=== PATIENT | female | born 1980 | race African-American/Black ===

== ENCOUNTER 2017-12-13 08:55 | Inpatient (IN) | payer OTHER ==
--- NOTE | 2017-12-13 09:50 | HP ---
CIWA Score - CIWA Score Nausea/Vomitin Muscle Tremors: 2 Anxiety: 2 Agitation: 2 Paroxysmal Sweats: 1-Minimal Palms Moist Orientation: 0-Oriented Tacttile Disturbances: 1-Very Mild Itch/Numbness Auditory Disturbances: 1-Very Mild Visual Disturbances: 1-Very Mild Sensitivity Headache: 2-Mild CIWA-Ar Total Score: 14 Admission ROS [facility] - HPI Chief Complaint: I need help to stop drinking alcohol and marijuana,withdrawal symptom,never been in detox before, weight loss nicotine dependence insomnia injury to right middle finger longest period of sobriety 2 years Allergies/Adverse Reactions: Allergies Allergy/AdvReac Type Severity Reaction Status Date / Time No Known Allergies Allergy Verified 12/13/17 09:34 History of Present Illness: this 37 years old female with alcohol dependence,need help to stop drinking as mentioned in chief complaint - Ebola screening Have you traveled outside of the country in the last 21 days: No Have you had contact with anyone from an Ebola affected area: No Do you have a fever: No - Review of Systems Constitutional: Loss of Appetite, Malaise, Night Sweats, Changes in sleep, Weakness, Unintentional Wgt. Loss EENT: reports: Nose Congestion Respiratory: reports: No Symptoms reported Cardiac: reports: No Symptoms Reported GI: reports: Nausea, Poor Appetite, Abdominal cramping : reports: No Symptoms Reported Musculoskeletal: reports: Back Pain, Muscle Pain Integumentary: reports: Dryness Neuro: reports: Headache, Tremors Endocrine: reports: No Symptoms Reported Hematology: reports: No Symptoms Reported Psychiatric: reports: No Sypmtoms Reported, Judgement Intact, Mood/Affect Appropiate, Orientated x3 (inspmnia) Patient History - Patient Medical History Hx Anemia: No Hx Asthma: No Hx Chronic Obstructive Pulmonary Disease (COPD): No Hx Cancer: No Hx Cardiac Disorders: No Hx Congestive Heart Failure: No Hx Hypertension: No Hx Hypercholesterolemia: No Hx Pacemaker: No HX Cerebrovascular Accident: No Hx Seizures: No Hx Dementia: No Hx Diabetes: No Hx Gastrointestinal Disorders: No Hx Liver Disease: No Hx Genitourinary Disorders: No Hx Sexually Transmitted Disorders: No Hx Renal Disease (ESRD): No Hx Thyroid Disease: No Hx Hepatitis C: No Hx Depression: No Hx Suicide Attempt: No Hx Bipolar Disorder: No Hx Schizophrenia: No Other Medical History: no suicidal,no homicidal - Patient Surgical History Past Surgical History: No - PPD History Previous Implant?: Yes Documented Results: Negative w/o proof Implanted On Prior R Admission?: No PPD to be Administered?: Yes - Reproductive History Patient is a Female of Child Bearing Age (11 -55 yrs old): Yes Last Menstrual Period: 11/26/17 Patient : No - Smoking Cessation Smoking history: Current every day smoker Have you smoked in the past 12 months: Yes Aproximately how many cigarettes per day: 10 Hx Chewing Tobacco Use: No Initiated information on smoking cessation: Yes 'Breaking Loose' booklet given: 12/13/17 - Substance & Tx. History Hx Alcohol Use: Yes Hx Substance Use: Yes Substance Use Type: Alcohol, Marijuana Hx Substance Use Treatment: No - Substances Abused Alcohol Route: Oral Frequency: Daily Amount used: Vodka 1-2 pints Age of first use: 19 Date of Last Use: 12/12/17 Marijuana/Hashish Route: Smoking Frequency: Daily Amount used: 1 joint Age of first use: 16 Date of Last Use: 12/12/17 Family Disease History - Family Disease History Family History: Denies Admission Physical Exam [facility] - Vital Signs Vital Signs: Vital Signs Temperature 98.6 F 12/13/17 22:05 Pulse Rate 104 H 12/13/17 22:05 Respiratory Rate 18 12/14/17 03:30 Blood Pressure 132/78 12/13/17 22:05 O2 Sat by Pulse Oximetry (%) - Physical General Appearance: Yes: Moderate Distress, Tremorous, Irritable, Sweating, Anxious HEENTM: Yes: Normal ENT Inspection, VICENTA, Pharynx Normal Respiratory: Yes: Lungs Clear, Normal Breath Sounds, No Respiratory Distress Neck: Yes: Within Normal Limits, Supple, Trachea in good position Breast: Yes: Breast Exam Deferred Cardiology: Yes: Within Normal Limits, Regular Rhythm, Regular Rate, S1, S2 Abdominal: Yes: Within Normal Limits, Normal Bowel Sounds, Non Tender, Soft Genitourinary: Yes: Within Normal Limits Back: Yes: Muscle Spasm Musculoskeletal: Yes: Back pain, Muscle Pain Extremities: Yes: Tremors, Swelling (right middle finger base of distral phalanx movement in flexion no limitation) Neurological: Yes: ear mold laboratory technician II-XII NML intact, Fully Oriented, Alert, Motor Strength 5/5 Integumentary: Yes: Dry Lymphatic: Yes: Within Normal Limits - Diagnostic (1) Alcohol dependence with uncomplicated withdrawal Current Visit: Yes Status: Acute (2) Cannabis dependence Current Visit: Yes Status: Acute (3) Nicotine dependence Current Visit: Yes Status: Acute (4) Weight loss Current Visit: Yes Status: Acute (5) Insomnia Current Visit: Yes Status: Acute (6) Contusion of middle finger Current Visit: Yes Status: Acute Cleared for Admission [facility] - Detox or Rehab S Level of Care: Medically Managed Detox Regimen/Protocol: Librium
[2017-12-13] MEDS ORDERED: MAG HYDROX/AL HYDROX/SIMETH 30 ML UNIT-DOSE CUP PO PRN (10:00)
[2017-12-13] MEDS ORDERED: IBUPROFEN 400 MG TABLET (FP) PO PRN (10:00)
[2017-12-13] MEDS ORDERED: MAGNESIUM CITRATE 300 ML BOTTLE PO PRN (10:00)
[2017-12-13] MEDS ORDERED: ACETAMINOPHEN 325 MG TABLET (FP) PO PRN (10:00)
[2017-12-13] MEDS ORDERED: MENTHOL/PHENOL 1 EACH UD MM PRN (10:00)
[2017-12-13] MEDS ORDERED: P-EPHED 60MG/TRIPROLIDI 2.5MG TABLET PO PRN (10:00)
[2017-12-13] MEDS ORDERED: MAGNESIUM HYDROX 2400MG/30ML ORAL SUSPENSION 30 ML CUP PO PRN (10:00)
[2017-12-13] MEDS ORDERED: LOPERAMIDE HCL 2 MG CAPSULE PO PRN (10:00)
[2017-12-13] MEDS ORDERED: guaiFENesin/D-METHORPHAN HB 10 ML UNIT-DOSE CUPS PO PRN (10:00)
[2017-12-13 10:11] VITALS: BMI 23.2
[2017-12-13] MEDS: PRENATAL VITAMINS W/ FOLIC ACID TABLET (FP) PO SCH (12:46)
[2017-12-13] MEDS: chlordiazePOXIDE HCL 25 MG CAPSULE PO PRN (12:46)
[2017-12-13] MEDS: chlordiazePOXIDE HCL 25 MG CAPSULE PO SCH ×2 (18:25→22:29)
[2017-12-13 19:25] LABS: URINE APPEARANCE CLOUDY; URINE COLOR AMBER; URINE GLUCOSE (UA) NEGATIVE (NEGATIVE); URINE KETONE NEGATIVE (NEGATIVE); URINE LEUK ESTERASE 2+ (NEGATIVE); URINE NITRITE NEGATIVE (NEGATIVE); URINE PROTEIN 2+ (NEGATIVE); URINE UROBILINOGEN 4.0 E.U/dl mg/dL (0.2-1.0)
[2017-12-13 19:46] LABS: EPI CELLS MANY /HPF (FEW); URINE MUCUS MANY
[2017-12-13] MEDS: THIAMINE HCL 100 MG TABLET (FP) PO SCH (22:29)
[2017-12-14] MEDS: chlordiazePOXIDE HCL 25 MG CAPSULE PO PRN ×2 (02:02→14:56)
[2017-12-14] MEDS: hydrOXYzine PAMOATE 25 MG CAPSULE (FP) PO PRN ×2 (02:02→14:56)
[2017-12-14] MEDS: chlordiazePOXIDE HCL 25 MG CAPSULE PO SCH ×4 (05:49→22:06)
[2017-12-14 10:19] LABS: HEMATOCRIT 38.2 % (32.4-45.2); HEMOGLOBIN 12.6 GM/dL (10.7-15.3); MCH 31.3 pg (25.7-33.7); MCHC 32.9 g/dl (32.0-36.0); MEAN PLT VOLUME 8.5 fl (7.5-11.1); PLATELET COUNT 234 K/MM3 (134-434); RBC 4.02 M/mm3 (3.60-5.2); RDW 13.6 % (11.6-15.6); WHITE BLOOD COUNT 5.5 K/mm3 (4.0-10.0)
[2017-12-14] MEDS: PRENATAL VITAMINS W/ FOLIC ACID TABLET (FP) PO SCH (10:36)
[2017-12-14 10:43] LABS: ALBUMIN 4.3 g/dl (3.4-5.0); ALK PHOS 95 U/L (45-117); ANION GAP 12 MMOL/L (8-16); BILIRUBIN,TOTAL 1.7 mg/dL (0.2-1); BLOOD UREA NITROGEN 9 mg/dL (7-18); CALCIUM 9.3 mg/dL (8.5-10.1); CHLORIDE 101 mmol/L (98-107); CO2 29 mmol/L (21-32); CREATININE 0.7 mg/dL (0.55-1.3); GLUCOSE,RANDOM 104 mg/dL (74-106); POTASSIUM 3.1 mmol/L (3.5-5.1); SGOT/AST 22 U/L (15-37); SGPT/ALT 21 U/L (13-61); SODIUM 142 mmol/L (136-145); TOT PROT 8.2 g/dl (6.4-8.2)
--- NOTE | 2017-12-14 14:47 | EKG ---
Test Reason : Blood Pressure : / mmHG Vent. Rate : 093 BPM Atrial Rate : 093 BPM P-R Int : 154 ms QRS Dur : 096 ms QT Int : 402 ms P-R-T Axes : 066 066 042 degrees QTc Int : 499 ms NORMAL SINUS RHYTHM PROLONGED QT ABNORMAL ECG NO PREVIOUS ECGS AVAILABLE Confirmed by MD Abraham, Carlos ([id number]) on 12/14/2017 2:47:22 PM Referred By: Confirmed By:Carlos Rosario MD
--- NOTE | 2017-12-14 15:19 | PN ---
[facility] CIWA - CIWA Score Nausea/Vomitin-No Nausea/No Vomiting Muscle Tremors: 1-None Visible, but [place] Anxiety: 1-Mildly Anxious Paroxysmal Sweats: No Perspiration Orientation: 0-Oriented Tacttile Disturbances: 0-None Auditory Disturbances: 0-None Visual Disturbances: 0-None Headache: 0-None Present [facility] Progress Note (SOAP) Subjective: States feeling better. I still feel very anxious and shaky though. Objective: A&O x 3. Mild tremors felt in hands. Vital Signs 12/14/17 12/14/17 12/14/17 03:30 09:25 13:57 Temperature 96.8 F L 98.1 F Pulse Rate 98 H 100 H Respiratory 18 18 16 Rate Blood Pressure 124/85 153/80 Laboratory Last Values WBC 5.5 K/mm3 (4.0-10.0) 12/14/17 05:40 RBC 4.02 M/mm3 (3.60-5.2) 12/14/17 05:40 Hgb 12.6 GM/dL (10.7-15.3) 12/14/17 05:40 Hct 38.2 % (32.4-45.2) 12/14/17 05:40 MCV 95.0 fl (80-96) 12/14/17 05:40 MCH 31.3 pg (25.7-33.7) 12/14/17 05:40 MCHC 32.9 g/dl (32.0-36.0) 12/14/17 05:40 RDW 13.6 % (11.6-15.6) 12/14/17 05:40 Plt Count 234 K/MM3 (134-434) 12/14/17 05:40 MPV 8.5 fl (7.5-11.1) 12/14/17 05:40 Sodium 142 mmol/L (136-145) 12/14/17 05:40 Potassium 4.4 mmol/L (3.5-5.1) 12/16/17 07:00 Chloride 101 mmol/L (98-107) 12/14/17 05:40 Carbon Dioxide 29 mmol/L (21-32) 12/14/17 05:40 Anion Gap 12 MMOL/L (8-16) 12/14/17 05:40 BUN 9 mg/dL (7-18) 12/14/17 05:40 Creatinine 0.7 mg/dL (0.55-1.3) 12/14/17 05:40 Creat Clearance w eGFR > 60 (>60) 12/14/17 05:40 Random Glucose 104 mg/dL (74-106) 12/14/17 05:40 Calcium 9.3 mg/dL (8.5-10.1) 12/14/17 05:40 Total Bilirubin 1.7 mg/dL (0.2-1) H 12/14/17 05:40 AST 22 U/L (15-37) 12/14/17 05:40 ALT 21 U/L (13-61) 12/14/17 05:40 Alkaline Phosphatase 95 U/L (45-117) 12/14/17 05:40 Total Protein 8.2 g/dl (6.4-8.2) 12/14/17 05:40 Albumin 4.3 g/dl (3.4-5.0) 12/14/17 05:40 Urine Color Yellow 12/16/17 19:30 Urine Appearance Cloudy 12/16/17 19:30 Urine pH 6.0 (5.0-8.0) 12/16/17 19:30 Ur Specific [place] 1.020 (1.010-1.035) 12/16/17 19:30 Urine Protein 1+ (NEGATIVE) H 12/16/17 19:30 Urine Glucose (UA) Negative (NEGATIVE) 12/16/17 19:30 Urine Ketones Negative (NEGATIVE) 12/16/17 19:30 Urine Blood 3+ (NEGATIVE) H 12/16/17 19:30 Urine Nitrite Negative (NEGATIVE) 12/16/17 19:30 Urine Bilirubin Negative (<2.0 mg/dL) 12/16/17 19:30 Urine Urobilinogen Negative mg/dL (0.2-1.0) 12/16/17 19:30 Ur Leukocyte Esterase 2+ (NEGATIVE) H 12/16/17 19:30 Urine WBC (Auto) 13 /hpf (3-5) 12/16/17 19:30 Urine RBC (Auto) 2238 /hpf (0-3) 12/16/17 19:30 Ur Epithelial Cells Few /HPF (FEW) 12/16/17 19:30 Urine Mucus Rare 12/16/17 19:30 RPR Titer Nonreactive (NONREACTIVE) 12/14/17 05:40 HIV 1&2 Antibody Screen Negative 12/13/17 11:26 HIV P24 Antigen Negative 12/13/17 11:26 Labs reviewed. Assessment: Withdrawal symptoms Plan: Continue detox.
[2017-12-14] MEDS: THIAMINE HCL 100 MG TABLET (FP) PO SCH (22:06)
[2017-12-15] MEDS: chlordiazePOXIDE HCL 25 MG CAPSULE PO SCH ×2 (05:55→10:24)
[2017-12-15] MEDS: PRENATAL VITAMINS W/ FOLIC ACID TABLET (FP) PO SCH (10:24)
--- NOTE | 2017-12-15 11:49 | PN ---
[facility] CIWA - CIWA Score Nausea/Vomitin-No Nausea/No Vomiting Muscle Tremors: 3 Anxiety: 2 Agitation: 2 Paroxysmal Sweats: 1-Minimal Palms Moist Orientation: 0-Oriented Tacttile Disturbances: 1-Very Mild Itch/Numbness Auditory Disturbances: 1-Very Mild Visual Disturbances: 0-None Headache: 1-Very Mild CIWA-Ar Total Score: 11 S Progress Note (SOAP) Subjective: tremor sweat restlessness trouble sleep at night trouble with male staff security and counselor and racebook writer discuss aggressive behabior toward house keeping case discuss with house keeping male staff that skip patient's room and move on to the next room the racebook writer recommend female house keeping to clean patient's room patient remove all her clothe on her bed emotionarl assurance that patient has the right nake in room but aggressive behavior violent behavior with potential harm others' behavior such as push the door in front of male staff's face is not acceptable psychiatrist referral for possible emotional trauma by history Objective: 12/15/17 11:48 Vital Signs Temperature 99.7 F H 12/15/17 09:45 Pulse Rate 96 H 12/15/17 09:45 Respiratory Rate 18 12/15/17 09:45 Blood Pressure 127/60 12/15/17 09:45 O2 Sat by Pulse Oximetry (%) Laboratory Last Values WBC 5.5 K/mm3 (4.0-10.0) 12/14/17 05:40 RBC 4.02 M/mm3 (3.60-5.2) 12/14/17 05:40 Hgb 12.6 GM/dL (10.7-15.3) 12/14/17 05:40 Hct 38.2 % (32.4-45.2) 12/14/17 05:40 MCV 95.0 fl (80-96) 12/14/17 05:40 MCH 31.3 pg (25.7-33.7) 12/14/17 05:40 MCHC 32.9 g/dl (32.0-36.0) 12/14/17 05:40 RDW 13.6 % (11.6-15.6) 12/14/17 05:40 Plt Count 234 K/MM3 (134-434) 12/14/17 05:40 MPV 8.5 fl (7.5-11.1) 12/14/17 05:40 Sodium 142 mmol/L (136-145) 12/14/17 05:40 Potassium 3.1 mmol/L (3.5-5.1) L 12/14/17 05:40 Chloride 101 mmol/L (98-107) 12/14/17 05:40 Carbon Dioxide 29 mmol/L (21-32) 12/14/17 05:40 Anion Gap 12 MMOL/L (8-16) 12/14/17 05:40 BUN 9 mg/dL (7-18) 12/14/17 05:40 Creatinine 0.7 mg/dL (0.55-1.3) 12/14/17 05:40 Creat Clearance w eGFR > 60 (>60) 12/14/17 05:40 Random Glucose 104 mg/dL (74-106) 12/14/17 05:40 Calcium 9.3 mg/dL (8.5-10.1) 12/14/17 05:40 Total Bilirubin 1.7 mg/dL (0.2-1) H 12/14/17 05:40 AST 22 U/L (15-37) 12/14/17 05:40 ALT 21 U/L (13-61) 12/14/17 05:40 Alkaline Phosphatase 95 U/L (45-117) 12/14/17 05:40 Total Protein 8.2 g/dl (6.4-8.2) 12/14/17 05:40 Albumin 4.3 g/dl (3.4-5.0) 12/14/17 05:40 Urine Color [place] 12/13/17 16: Urine Appearance Cloudy 12/13/17 16:27 Urine pH 5.0 (5.0-8.0) 12/13/17 16:27 Ur Specific [place] 1.032 (1.010-1.035) 12/13/17 16: Urine Protein 2+ (NEGATIVE) H 12/13/17 16:27 Urine Glucose (UA) Negative (NEGATIVE) 12/13/17 16:27 Urine Ketones Negative (NEGATIVE) 12/13/17 16: Urine Blood Negative (NEGATIVE) 12/13/17 16: Urine Nitrite Negative (NEGATIVE) 12/13/17 16:27 Urine Bilirubin 2.0 (<2.0 mg/dL) 12/13/17 16:27 Urine Urobilinogen 4.0 e.u/dl mg/dL (0.2-1.0) H 12/13/17 16:27 Ur Leukocyte Esterase 2+ (NEGATIVE) H 12/13/17 16:27 Urine WBC (Auto) 82 /hpf (3-5) 12/13/17 16:27 Urine RBC (Auto) 19 /hpf (0-3) 12/13/17 16:27 Ur Epithelial Cells Many /HPF (FEW) 12/13/17 16:27 Urine Mucus Many 12/13/17 16:27 RPR Titer Nonreactive (NONREACTIVE) 12/14/17 05:40 HIV 1&2 Antibody Screen Negative 12/13/17 11:26 HIV P24 Antigen Negative 12/13/17 11:26 lab noted K+ low Assessment: 12/15/17 11:50 withdrawal sx rule out depression K+ supplement repeat K+ Plan: continue detox potassium supplement repeat K+
[2017-12-15] MEDS: POTASSIUM CHLORIDE ORAL LIQUID 20 MEQ/15 ML PO SCH ×2 (13:36→22:30)
[2017-12-15] MEDS: chlordiazePOXIDE 5 MG CAPSULE PO SCH ×2 (17:22→22:28)
[2017-12-15] MEDS: THIAMINE HCL 100 MG TABLET (FP) PO SCH (22:29)
[2017-12-15] MEDS: MELATONIN 5 MG TABLETS PO PRN (22:29)
[2017-12-16] MEDS: chlordiazePOXIDE 5 MG CAPSULE PO SCH ×2 (05:46→10:10)
--- NOTE | 2017-12-16 07:43 | CONSULT ---
[facility] Psychiatric Consult - Data Date of interview: 12/16/17 Admission source: [facility] Identifying data: This is a 37 years old female, single mother of two, unemploued, homeless, on PA support, with psychiatric hospitalization history, history of Bipolar disorder, is here due to Alcohol depemdence, reports Alcohol withdrawal symptomsmand seeking detox. Substance Abuse History: Smoking history: Current every day smoker. Have you smoked in the past 12 months: Yes. Aproximately how many cigarettes per day: 10. Hx Chewing Tobacco Use: No. Initiated information on smoking cessation: Yes. 'Breaking Loose' booklet given: 12/13/17. - Substance & Tx. History. Hx Alcohol Use: Yes. Hx Substance Use: Yes. Substance Use Type: Alcohol, Marijuana. Hx Substance Use Treatment: No. - Substances Abused. Alcohol. Route: Oral. Frequency: Daily. Amount used: Vodka 1-2 pints. Age of first use : 19. Date of Last Use: 12/12/17. Marijuana/Hashish. Route: Smoking. Frequency: Daily. Amount used: 1 joint. Age of first use: 16. Date of Last Use: 12/12/17 Medical History: Weight loss history Psychiatric History: Patient reports history of anxiety and depression, reports no medications taking this time, reports unclear psychiatric admission on about more then 5 years ago, denies any psychiatric pharmacological intervention at thistime. Denies suicidal, homicidal history. Physical/Sexual Abuse/Trauma History: Denies, unclear Additional Comment: Observation. Detox Unit Carte Protocol Mental Status Exam - Mental Status Exam Alert and Oriented to: Person Cognitive Function: Fair Patient Appearance: Unkempt Mood: Sad Affect: Flat Patient Behavior: Sedated Speech Pattern: Delayed Voice Loudness: Mildly Soft/Quiet Thought Process: Circumstantial Thought Disorder: Being Controlled Hallucinations: Denies Suicidal Ideation: Denies Homicidal Ideation: Denies Insight/Judgement: Fair Sleep: Difficulty falling asleep Appetite: Weight loss Muscle strength/Tone: Mild Hypotonicity Gait/Station: Shuffling Additional Comments: Observation. Detox Unit Carte Protocol Psychiatric Findings - Problem List ([place] 1, 2,3) (1) Alcohol dependence with uncomplicated withdrawal Current Visit: Yes Status: Acute (2) Cannabis dependence Current Visit: Yes Status: Acute (3) Nicotine dependence Current Visit: Yes Status: Acute (4) Weight loss Current Visit: Yes Status: Acute - Initial Treatment Plan Initial Treatment Plan: Observation. Detox Unit Carte Protocol
[2017-12-16] MEDS: PRENATAL VITAMINS W/ FOLIC ACID TABLET (FP) PO SCH (10:10)
[2017-12-16] MEDS: POTASSIUM CHLORIDE ORAL LIQUID 20 MEQ/15 ML PO SCH (10:11)
--- NOTE | 2017-12-16 10:44 | PN ---
[facility] Progress Note (SOAP) Subjective: feeling better no tremor less sweat no gi distress Objective: 12/16/17 10:47 Vital Signs Temperature 98.1 F 12/16/17 10:19 Pulse Rate 94 H 12/16/17 10:19 Respiratory Rate 18 12/16/17 10:19 Blood Pressure 112/74 12/16/17 10:19 O2 Sat by Pulse Oximetry (%) Laboratory Last Values WBC 5.5 K/mm3 (4.0-10.0) 12/14/17 05:40 RBC 4.02 M/mm3 (3.60-5.2) 12/14/17 05:40 Hgb 12.6 GM/dL (10.7-15.3) 12/14/17 05:40 Hct 38.2 % (32.4-45.2) 12/14/17 05:40 MCV 95.0 fl (80-96) 12/14/17 05:40 MCH 31.3 pg (25.7-33.7) 12/14/17 05:40 MCHC 32.9 g/dl (32.0-36.0) 12/14/17 05:40 RDW 13.6 % (11.6-15.6) 12/14/17 05:40 Plt Count 234 K/MM3 (134-434) 12/14/17 05:40 MPV 8.5 fl (7.5-11.1) 12/14/17 05:40 Sodium 142 mmol/L (136-145) 12/14/17 05:40 Potassium 4.4 mmol/L (3.5-5.1) 12/16/17 07:00 Chloride 101 mmol/L (98-107) 12/14/17 05:40 Carbon Dioxide 29 mmol/L (21-32) 12/14/17 05:40 Anion Gap 12 MMOL/L (8-16) 12/14/17 05:40 BUN 9 mg/dL (7-18) 12/14/17 05:40 Creatinine 0.7 mg/dL (0.55-1.3) 12/14/17 05:40 Creat Clearance w eGFR > 60 (>60) 12/14/17 05:40 Random Glucose 104 mg/dL (74-106) 12/14/17 05:40 Calcium 9.3 mg/dL (8.5-10.1) 12/14/17 05:40 Total Bilirubin 1.7 mg/dL (0.2-1) H 12/14/17 05:40 AST 22 U/L (15-37) 12/14/17 05:40 ALT 21 U/L (13-61) 12/14/17 05:40 Alkaline Phosphatase 95 U/L (45-117) 12/14/17 05:40 Total Protein 8.2 g/dl (6.4-8.2) 12/14/17 05:40 Albumin 4.3 g/dl (3.4-5.0) 12/14/17 05:40 Urine Color [place] 12/13/17 16: Urine Appearance Cloudy 12/13/17 16: Urine pH 5.0 (5.0-8.0) 12/13/17 16:27 Ur Specific [place] 1.032 (1.010-1.035) 12/13/17 16:27 Urine Protein 2+ (NEGATIVE) H 12/13/17 16:27 Urine Glucose (UA) Negative (NEGATIVE) 12/13/17 16:27 Urine Ketones Negative (NEGATIVE) 12/13/17 16: Urine Blood Negative (NEGATIVE) 12/13/17 16:27 Urine Nitrite Negative (NEGATIVE) 12/13/17 16:27 Urine Bilirubin 2.0 (<2.0 mg/dL) 12/13/17 16:27 Urine Urobilinogen 4.0 e.u/dl mg/dL (0.2-1.0) H 12/13/17 16:27 Ur Leukocyte Esterase 2+ (NEGATIVE) H 12/13/17 16:27 Urine WBC (Auto) 82 /hpf (3-5) 12/13/17 16:27 Urine RBC (Auto) 19 /hpf (0-3) 12/13/17 16:27 Ur Epithelial Cells Many /HPF (FEW) 12/13/17 16:27 Urine Mucus Many 12/13/17 16:27 RPR Titer Nonreactive (NONREACTIVE) 12/14/17 05:40 HIV 1&2 Antibody Screen Negative 12/13/17 11:26 HIV P24 Antigen Negative 12/13/17 11:26 lab noted repeat ua Assessment: 12/16/17 10:49 mild withdrawal sx Plan: medically supervised detox
[2017-12-16] MEDS: chlordiazePOXIDE HCL 10 MG CAPSULE PO SCH ×2 (17:55→22:30)
[2017-12-16 20:35] LABS: URINE APPEARANCE CLOUDY; URINE BILIRUBIN NEGATIVE (<2.0 mg/dL); URINE COLOR YELLOW; URINE GLUCOSE (UA) NEGATIVE (NEGATIVE); URINE KETONE NEGATIVE (NEGATIVE); URINE LEUK ESTERASE 2+ (NEGATIVE); URINE NITRITE NEGATIVE (NEGATIVE); URINE PROTEIN 1+ (NEGATIVE); URINE UROBILINOGEN NEGATIVE mg/dL (0.2-1.0)
[2017-12-16 20:48] LABS: EPI CELLS FEW /HPF (FEW); URINE MUCUS RARE
[2017-12-16] MEDS: THIAMINE HCL 100 MG TABLET (FP) PO SCH (22:30)
[2017-12-16] MEDS: MELATONIN 5 MG TABLETS PO PRN (22:31)
[2017-12-17] MEDS: chlordiazePOXIDE HCL 10 MG CAPSULE PO SCH (05:55)
--- NOTE | 2017-12-17 09:03 | DS ---
[facility] Detox Discharge Summary Admission Date: 12/13/17 Discharge Date: 12/17/17 - History Present History: Alcohol Dependence Additional Comments: 37 years old female admitted on 12/13/17 for alcohol withdrawal sx completed alcohol detox regimen tolerated well denies alcohol withdrawal sx alert oriented x 3 no acute distress aftercare new direction - Physical Exam Results Vital Signs: Vital Signs Temperature 97.5 F L 12/17/17 07:25 Pulse Rate 90 12/17/17 07:25 Respiratory Rate 18 12/17/17 07:25 Blood Pressure 125/77 12/17/17 07:25 O2 Sat by Pulse Oximetry (%) Pertinent Admission Physical Exam Findings: alcohol withdrawal sx Vital Signs Temperature 98.1 F 12/17/17 09:44 Pulse Rate 95 H 12/17/17 09:44 Respiratory Rate 16 12/17/17 09:44 Blood Pressure 124/85 12/17/17 09:44 O2 Sat by Pulse Oximetry (%) Laboratory Last Values WBC 5.5 K/mm3 (4.0-10.0) 12/14/17 05:40 RBC 4.02 M/mm3 (3.60-5.2) 12/14/17 05:40 Hgb 12.6 GM/dL (10.7-15.3) 12/14/17 05:40 Hct 38.2 % (32.4-45.2) 12/14/17 05:40 MCV 95.0 fl (80-96) 12/14/17 05:40 MCH 31.3 pg (25.7-33.7) 12/14/17 05:40 MCHC 32.9 g/dl (32.0-36.0) 12/14/17 05:40 RDW 13.6 % (11.6-15.6) 12/14/17 05:40 Plt Count 234 K/MM3 (134-434) 12/14/17 05:40 MPV 8.5 fl (7.5-11.1) 12/14/17 05:40 Sodium 142 mmol/L (136-145) 12/14/17 05:40 Potassium 4.4 mmol/L (3.5-5.1) 12/16/17 07:00 Chloride 101 mmol/L (98-107) 12/14/17 05:40 Carbon Dioxide 29 mmol/L (21-32) 12/14/17 05:40 Anion Gap 12 MMOL/L (8-16) 12/14/17 05:40 BUN 9 mg/dL (7-18) 12/14/17 05:40 Creatinine 0.7 mg/dL (0.55-1.3) 12/14/17 05:40 Creat Clearance w eGFR > 60 (>60) 12/14/17 05:40 Random Glucose 104 mg/dL (74-106) 12/14/17 05:40 Calcium 9.3 mg/dL (8.5-10.1) 12/14/17 05:40 Total Bilirubin 1.7 mg/dL (0.2-1) H 12/14/17 05:40 AST 22 U/L (15-37) 12/14/17 05:40 ALT 21 U/L (13-61) 12/14/17 05:40 Alkaline Phosphatase 95 U/L (45-117) 12/14/17 05:40 Total Protein 8.2 g/dl (6.4-8.2) 12/14/17 05:40 Albumin 4.3 g/dl (3.4-5.0) 12/14/17 05:40 Urine Color Yellow 12/16/17 19:30 Urine Appearance Cloudy 12/16/17 19:30 Urine pH 6.0 (5.0-8.0) 12/16/17 19:30 Ur Specific [place] 1.020 (1.010-1.035) 12/16/17 19:30 Urine Protein 1+ (NEGATIVE) H 12/16/17 19:30 Urine Glucose (UA) Negative (NEGATIVE) 12/16/17 19:30 Urine Ketones Negative (NEGATIVE) 12/16/17 19:30 Urine Blood 3+ (NEGATIVE) H 12/16/17 19:30 Urine Nitrite Negative (NEGATIVE) 12/16/17 19:30 Urine Bilirubin Negative (<2.0 mg/dL) 12/16/17 19: Urine Urobilinogen Negative mg/dL (0.2-1.0) 12/16/17 19:30 Ur Leukocyte Esterase 2+ (NEGATIVE) H 12/16/17 19:30 Urine WBC (Auto) 13 /hpf (3-5) 12/16/17 19:30 Urine RBC (Auto) 2238 /hpf (0-3) 12/16/17 19:30 Ur Epithelial Cells Few /HPF (FEW) 12/16/17 19:30 Urine Mucus Rare 12/16/17 19:30 RPR Titer Nonreactive (NONREACTIVE) 12/14/17 05:40 HIV 1&2 Antibody Screen Negative 12/13/17 11:26 HIV P24 Antigen Negative 12/13/17 11:26 lab noted asymptomatic encourage hygiene oral fluid - Treatment Hospital Course: Detox Protocol Followed, Detoxed Safely, Responded well, Discharged Condition Good, Rehab Referral Accepted Patient has Accepted a Rehab Referral to: new direction - Medication Discharge Medications: Ambulatory Orders NK [No Known Home Medication] 12/13/17 - Diagnosis (1) Alcohol dependence with uncomplicated withdrawal Current Visit: Yes Status: Acute (2) Nicotine dependence Current Visit: Yes Status: Acute Qualifiers: Nicotine product type: cigarettes Substance use status: in withdrawal Qualified Code(s): F17.213 - Nicotine dependence, cigarettes, with withdrawal (3) Weight loss Current Visit: Yes Status: Acute - AMA Did Patient Leave Against Medical Advice: No
[2017-12-17 09:44] VITALS: BP 124/85; PULSE 95; TEMP 98.1
== END 2017-12-17 09:55 | disposition home or self-care (01) | DRG 775 ==
LOC: YASAS 08:55 → Y6N 11:10
PROC: HZ2ZZZZ Detoxification Services for Substance Abuse Treatment (ICD-10-PCS; principal; 2017-12-13)
DX: F10.230 Alcohol dependence with withdrawal, uncomplicated (principal); F12.20 Cannabis dependence, uncomplicated; F17.213 Nicotine dependence, cigarettes, with withdrawal; E87.6 Hypokalemia; G47.00 Insomnia, unspecified; M62.830 Muscle spasm of back; S60.031A Contusion of right middle finger without damage to nail, initial encounter; R63.4 Abnormal weight loss; Z68.23 Body mass index [BMI] 23.0-23.9, adult; X58.XXXA Exposure to other specified factors, initial encounter; Y93.89 Activity, other specified; Y92.9 Unspecified place or not applicable; Y99.9 Unspecified external cause status
CPT/HCPCS: 36415; 73140-TC-RT-FY; 80053; 81003; 81015; 84132; 85027; 86593; 87389; 93005; 93010